=== PATIENT | male | born 1995 | race Caucasian/White ===

== ENCOUNTER 2019-09-08 00:43 | Emergency (ER) | payer BC ==
[~2019-09-08] VITALS: Ht 188 cm; Wt 122.5 kg
--- NOTE | 2019-09-08 01:10 | NUR ---
PT PRESENTED TO THE ER WITH A C/O PALPITATIONS. PT FELT THAT HIS HEART WAS RACING. PT WAS PLACED ON THE MONITOR AND CONTINUOUS PULSE OX. PT'S HR WAS 97. PT WAS HYPERVENTILATING AND C/O FEELING LIKE HE WAS GOING TO PASS OUT. WILL CONTINUE TO MONITOR THE PT.
[2019-09-08] MEDS: KETOROLAC TROMETHAMINE INJ 60 MG/2 ML VIAL IM ONE (01:30)
[2019-09-08] MEDS ORDERED: KETOROLAC TROMETHAMINE INJ 60 MG/2 ML VIAL IM ONE (01:39)
[2019-09-08 01:42] LABS: BASOPHILS # (AUTO) 0.1 /CMM (0.0-0.2); BASOPHILS % (AUTO) 0.6 % (0.0-2.0); EOSINOPHILS % (AUTO) 1.2 % (0.0-6.0); HEMATOCRIT 48 % (39-51); LYMPHOCYTES # (AUTO) 3.4 /CMM (0.8-4.8); LYMPHOCYTES % (AUTO) 23.5 % (20.0-44.0); MEAN CORPUSCULAR HGB CONC 34 g/dl (31.0-36.0); MEAN CORPUSCULAR VOLUME 90 fL (80-96); MONOCYTES # (AUTO) 1.3 /CMM (0.1-1.30); NEUTROPHILS # (AUTO) 9.5 /CMM (1.8-8.9); NEUTROPHILS % (AUTO) 65.7 % (43.0-81.0); PLATELET COUNT (AUTO) 305 /CMM (150-450); RED BLOOD CELL COUNT(AUTO) 5.27 MIL/uL (4.5-6.0); WHITE BLOOD COUNT (AUTO) 14.4 K/uL (4.3-11.0)
[2019-09-08 01:53] LABS: CALCIUM, SERUM 9.9 mg/dL (8.5-10.1); CARBON DIOXIDE 24 mmol/L (21-32); CHLORIDE 105 mmol/L (98-107); CREATININE 0.9 mg/dL (0.6-1.3); GLUCOSE 116 mg/dL (74-106); POTASSIUM 3.5 mmol/L (3.5-5.1); SODIUM SERUM 143 mmol/L (136-145); UREA NITROGEN, BLOOD 11 mg/dL (7-18)
[2019-09-08 02:02] LABS: ALANINE AMINOTRANSFERASE 20 U/L (12-78); ALKALINE PHOSPHATASE 89 U/L (46-116); ASPARTATE AMINOTRANSFERASE 13 U/L (15-37); B-TYPE NATRIURETIC PEPTIDE 13 PG/ML (0-125); BILIRUBIN,DIRECT 0.1 mg/dL (0.0-0.2); BILIRUBIN,TOTAL 0.5 mg/dL (0.2-1.0); TOTAL PROTEIN, SERUM 7.7 g/dL (6.4-8.2)
[2019-09-08] MEDS ORDERED: ASPIRIN 81 MG TAB.CHEW ONE (02:04)
[2019-09-08] MEDS: ASPIRIN 81 MG TAB.CHEW PO ONE (02:05)
--- NOTE | 2019-09-08 02:50 | NUR ---
PT AMBULATED TO THE BATHROOM WITH A STEADY GAIT.
--- NOTE | 2019-09-08 03:00 | NUR ---
PT RETURNED TO ER 1. PT WAS RECONNECTED TO THE MONITOR AND CONTINUOUS PULSE OX. PT APPEARS TO BE RESTING COMFORTABLY.
--- NOTE | 2019-09-08 05:39 | NUR ---
PT APPEARS TO BE RESTING COMFORTABLY WITH NO S/S OF PAIN OR DISTRESS.
[2019-09-08 06:00] VITALS: BP 159/65
--- NOTE | 2019-09-08 06:00 | NUR ---
Patient discharged to home in stable condition. Written and verbal after care instructions given. Patient verbalizes understanding of instruction. Pt denied any pain or discomfort upo d/c.
== END 2019-09-08 06:02 | disposition home or self-care (01) ==
LOC: ER 00:45
DX: F45.0 Somatization disorder (principal); R00.2 Palpitations; R42 Dizziness and giddiness; I10 Essential (primary) hypertension; R00.0 Tachycardia, unspecified; Z98.890 Other specified postprocedural states; Z88.1 Allergy status to other antibiotic agents
CPT/HCPCS: 36415; 71045; 80048; 80076; 83880; 84484 ×2; 85025; 93005; 96372; 99284; J1885

== ENCOUNTER 2019-09-23 06:25 | Emergency (ER) | payer BC ==
[~2019-09-23] VITALS: Ht 188 cm; Wt 122.5 kg
--- NOTE | 2019-09-23 06:30 | NUR ---
PT BIB EMS C/O N/V X3 HRS, CHILLS, GEN BODY PAIN, "FLU LIKE SYMPTOMS". NAD NOTED. RESP EVEN AND UNLABORED. PT ON MONITOR IN BED 9. MD AT BEDSIDE. WILL CONTINUE TO MONITOR.
[2019-09-23] MEDS ORDERED: ONDANSETRON HCL/PF 4 MG/2 ML VIAL ONE (06:39)
--- NOTE | 2019-09-23 06:40 | NUR ---
TECH AT BEDSIDE FOR EKG
--- NOTE | 2019-09-23 06:49 | NUR ---
BLOOD DRAWN AND GIVEN TO PHLEB
[2019-09-23 06:53] LABS: BASOPHILS % (AUTO) 0.4 % (0.0-2.0); EOSINOPHILS % (AUTO) 0.4 % (0.0-6.0); HEMATOCRIT 47 % (39-51); HEMOGLOBIN 16.3 g/dL (13.5-17.5); LYMPHOCYTES # (AUTO) 1.2 /CMM (0.8-4.8); LYMPHOCYTES % (AUTO) 8.9 % (20.0-44.0); MEAN CORPUSCULAR HGB CONC 35 g/dl (31.0-36.0); MEAN CORPUSCULAR VOLUME 89 fL (80-96); MONOCYTES # (AUTO) 1.1 /CMM (0.1-1.30); NEUTROPHILS # (AUTO) 10.9 /CMM (1.8-8.9); NEUTROPHILS % (AUTO) 82.3 % (43.0-81.0); PLATELET COUNT (AUTO) 269 /CMM (150-450); RED BLOOD CELL COUNT(AUTO) 5.29 MIL/uL (4.5-6.0); WHITE BLOOD COUNT (AUTO) 13.3 K/uL (4.3-11.0)
[2019-09-23] MEDS ORDERED: ACETAMINOPHEN 325 MG TABLET ONE (06:54)
[2019-09-23] MEDS ORDERED: KETOROLAC TROMETHAMINE 15 MG/ML VIAL ONE (06:54)
[2019-09-23] MEDS ORDERED: ACETAMINOPHEN 325 MG TABLET PO ONE (07:00)
[2019-09-23] MEDS ORDERED: ONDANSETRON HCL/PF 4 MG/2 ML VIAL IVP ONE (07:00)
[2019-09-23] MEDS ORDERED: KETOROLAC TROMETHAMINE INJ 30 MG/ML VIAL IV ONE (07:00)
[2019-09-23] MEDS ORDERED: IV NS 0.9% 1,000 ML BAG IV ONE ×2 (07:00→11:00)
--- NOTE | 2019-09-23 07:10 | NUR ---
RADIOLOGY AT BEDSIDE FOR XRAY
[2019-09-23 07:17] LABS: ALANINE AMINOTRANSFERASE 30 U/L (12-78); ALBUMIN 3.8 g/dL (3.4-5.0); ALKALINE PHOSPHATASE 86 U/L (46-116); ASPARTATE AMINOTRANSFERASE 18 U/L (15-37); BILIRUBIN,DIRECT 0.1 mg/dL (0.0-0.2); BILIRUBIN,TOTAL 0.3 mg/dL (0.2-1.0); CALCIUM, SERUM 9.4 mg/dL (8.5-10.1); CARBON DIOXIDE 22 mmol/L (21-32); CHLORIDE 106 mmol/L (98-107); GLUCOSE 124 mg/dL (74-106); POTASSIUM 3.4 mmol/L (3.5-5.1); SODIUM SERUM 142 mmol/L (136-145); TOTAL PROTEIN, SERUM 7.3 g/dL (6.4-8.2); UREA NITROGEN, BLOOD 10 mg/dL (7-18)
--- NOTE | 2019-09-23 07:17 | NUR ---
PT UNABLE TO PROVIDE URINE AT THIS TIME. URINAL PLACED BESIDE PATIENT.
--- NOTE | 2019-09-23 07:17 | NUR ---
FLU SWAB SENT TO LAB
--- NOTE | 2019-09-23 08:03 | NUR ---
LACTIC ACID 3.5
[2019-09-23] MEDS ORDERED: diphenhydrAMINE HCL 50 MG/ML VIAL ONE (08:16)
[2019-09-23] MEDS ORDERED: PROCHLORPERAZINE EDISYLATE 10 MG/2 ML VIAL ONE (08:17)
--- NOTE | 2019-09-23 08:23 | NUR ---
PREVIOUS IV SITE WAS OULLED OUT BY PT. RESTARTED IV SITE TO RIGHT HAND 22G
--- NOTE | 2019-09-23 08:26 | NUR ---
URINE SAMPLE COLLECTED AND SENT TO LAB
[2019-09-23 08:30] LABS: APPEARANCE,URINE Clear (CLEAR); BILIRUBIN,URINE Negative (NEGATIVE); BLOOD, URINE Negative Ery/uL (NEGATIVE); COLOR,URINE Yellow (YELLOW); KETONES,URINE Trace (NEGATIVE); LEUKOCYTE ESTERASE ,URINE Negative (NEGATIVE); NITRITE, URINE Negative (NEGATIVE); PROTEIN,URINE Negative (NEGATIVE); UGLUCOSE Negative (NEGATIVE); UROBILINOGEN,URINE 0.2 EU/dL (0.2)
[2019-09-23] MEDS ORDERED: diphenhydrAMINE HCL 50 MG/ML VIAL IV ONE (08:30)
[2019-09-23] MEDS ORDERED: PROCHLORPERAZINE EDISYLATE 10 MG/2 ML VIAL IVP ONE (08:30)
[2019-09-23 08:31] LABS: BACTERIA,URINE None seen /HPF (None Seen); PH,URINE >9.0 (5.0-8.0); RBC,URINE 0-2 /HPF (0-2); SQUAMOUS EPITHELIAL CELL,UR None Seen /HPF (None Seen); WBC,URINE 0-2 /HPF (0-3)
--- NOTE | 2019-09-23 10:14 | NUR ---
SINGING TEACHER AT BEDSIDE
--- NOTE | 2019-09-23 10:36 | NUR ---
lactic reflex 2.3
--- NOTE | 2019-09-23 13:11 | NUR ---
pt remains stable and asleep. no distress noted. will continue to monitor
--- NOTE | 2019-09-23 13:48 | NUR ---
Patient discharged to home in stable condition. Written and verbal after care instructions given. Patient verbalizes understanding of instruction. IV removed. Catheter intact and site benign. Pressure and 4x4 applied to site. No bleeding noted.
[2019-09-23 13:50] VITALS: BP 133/75
== END 2019-09-23 13:53 | disposition home or self-care (01) ==
LOC: ER 06:26
DX: J10.1 Influenza due to other identified influenza virus with other respiratory manifestations (principal); R11.2 Nausea with vomiting, unspecified; D72.829 Elevated white blood cell count, unspecified; E87.2 Acidosis; E87.6 Hypokalemia; F12.10 Cannabis abuse, uncomplicated; F15.10 Other stimulant abuse, uncomplicated; R45.1 Restlessness and agitation; I10 Essential (primary) hypertension; F10.10 Alcohol abuse, uncomplicated; Y90.9 Presence of alcohol in blood, level not specified; Z88.1 Allergy status to other antibiotic agents
CPT/HCPCS: 36415; 71045; 80048; 80076; 80305; 81001; 83605 ×3; 84145; 85025; 87804 ×2; 93005; 96361; 96374; 96375; 99284; J0780; J1200; J1885; J2405; J7030 ×2; J7040; 81000-TC